=== PATIENT | female | born 1960 | race Caucasian/White ===

== ENCOUNTER → 2023-11-08 | Outpatient (REF) | payer BC | LOC: M LAB REF 18:00 | PROVIDERS: ATTEND Internal Medicine Endocrinology, Diabetes & Metabolism | DX: E04.1 Nontoxic single thyroid nodule (principal) ==

== ENCOUNTER → 2025-07-31 | Outpatient (REF) | payer BC | LOC: M SFHCDERM 06:53 | PROVIDERS: ATTEND Dermatology | DX: L72.11 Pilar cyst (principal) ==